=== PATIENT | female | born 1990 | race Asian ===

== ENCOUNTER 2017-06-08 20:35 | Emergency (ER) | payer BC ==
[2017-06-08 22:22] VITALS: BP 128/70
== END 2017-06-08 22:22 | disposition home or self-care (01) ==
LOC: ED 20:35
DX: S93.402A Sprain of unspecified ligament of left ankle, initial encounter (principal); Z88.2 Allergy status to sulfonamides; X50.1XXA Overexertion from prolonged static or awkward postures, initial encounter; Y93.89 Activity, other specified; Y92.89 Other specified places as the place of occurrence of the external cause; Y99.8 Other external cause status